=== PATIENT | male | born 1970 | race Caucasian/White ===

== ENCOUNTER 2023-01-03 06:59 | Day surgery (SDC) | payer OTHER ==
[~2023-01-03] VITALS: Ht 180.3 cm; Wt 124.7 kg
[2023-01-03] MEDS ORDERED: diphenhydrAMINE 50 MG/ML VIAL ONE (07:28)
[2023-01-03] MEDS ORDERED: LIDOCAINE 2% 100 MG/5 ML UJET TP ONE (07:29)
[2023-01-03] MEDS ORDERED: MIDAZOLAM 5 MG/5 ML VIAL ONE (07:29)
[2023-01-03] MEDS ORDERED: fentaNYL citrate 0.05 MG/ML VIAL ONE (07:29)
[2023-01-03] MEDS ORDERED: fentaNYL citrate 0.05 MG/ML VIAL IVP ONE (14:55)
[2023-01-03] MEDS ORDERED: MIDAZOLAM 2 MG/2 ML VIAL IVP ONE (14:55)
[2023-01-03] MEDS ORDERED: diphenhydrAMINE 50 MG/ML VIAL IVP ONE (14:55)
== END 2023-01-03 09:49 | disposition home or self-care (01) ==
LOC: MDS 06:59 → MMU 07:00 → MDS 09:49
PROVIDERS: ATTEND Internal Medicine Gastroenterology
DX: R19.5 Other fecal abnormalities (principal); K63.5 Polyp of colon; E11.9 Type 2 diabetes mellitus without complications; F41.9 Anxiety disorder, unspecified; Z79.84 Long term (current) use of oral hypoglycemic drugs; Z20.822 Contact with and (suspected) exposure to COVID-19
CPT/HCPCS: 45380; 45385; 87426; J1200; J2250; J3010